=== PATIENT | female | born 1940 | race Caucasian/White ===

== ENCOUNTER → 2016-11-29 | Outpatient (REF) | payer MEDICARE, OTHER ==
[~2016-11-29] MED LIST: ALEN70TA47 PO; CA C1TAB26 PO; ESCI10TA PO; GARL10002 PO; HYDR-757 PO; LEVO50TA PO; TMZP15C PO; VALS1TAB76 PO
[2016-11-29 10:42] LABS: ANION GAP 13.6 MEQ/L (3-15)
== END ==
LOC: LAB 10:20
PROVIDERS: ATTEND Family Medicine
DX: I10 Essential (primary) hypertension (principal)
CPT/HCPCS: 80048